=== PATIENT | male | born 1970 | race Caucasian/White ===

== ENCOUNTER 2017-03-25 11:31 | Emergency (ER) | payer OTHER ==
[~2017-03-25] VITALS: Ht 182.9 cm; Wt 90.9 kg
[2017-03-25 11:31] VITALS: BP 137/82; PULSE 103; RESP 16; O2SAT 96
--- NOTE | 2017-03-25 11:32 | ED.REPORT ---
HPI-Seizure Date of Service March 25, 2017 ED Provider: Dr. 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 He would have fallen to the ground if his coworkers had not caught him. Pt bit his tongue but did not hit his head. The seizure lasted approximately 5 minutes. By the time medics arrived, the pt was no longer seizing and was sitting on the ground and answering questions normally. The pt is unable to recall the incident at the ED but is awake, fully coherent, and all symptoms have resolved. Medics relay that coworkers reports he was intermittently taking his seizure medicine. Pt denies fever, cough, and vomiting. He lives at home alone. Nursing Notes Stated Complaint: SEIZURE Nursing Notes Reviewed: Yes Allergies: Coded Allergies: No Known Allergies (Unverified , 03/25/17) General Time Seen by Provider: 11:32 Chief Complaint Chief Complaint: Seizure, generalized Seizure Anatomic Location: Generalized Hx Obtained From: Patient, EMS Arrived By: Ambulance Onset Occurred: Just prior to arrival Symptom Duration: Since onset Severity: Current: No pain currently Recent Healthcare: No recent doctor visit, No recent hospitalization Similar Sx Previous: No Past Medical History Past Medical History high blood pressure Smoking History Unknown if Ever Smoker Social History chew tobacco Alcohol Use: 1-3 per day Drug Use: Denies drug use Other Social History: Local resident Ambulatory Status Independent Review of Systems Constitutional: Denies: Fever Respiratory: Denies: Non-productive cough Cardiovascular: Denies: Chest pain Musculoskeletal: Denies: Extremity pain, Joint pain, Neck pain Neurologic: Reports: Change LOC, Lightheaded, Seizure, Denies: Headache Complete sys rev & neg: except as marked. GI: Denies: Abdominal pain, Diarrhea, Nausea, Vomiting Physical Exam Initial Vital Signs Vital Signs (First) Date Time Temp Pulse Resp B/P Pulse Ox O2 Delivery O2 Flow Rate FiO2 03/25/17 11:31 36.9 103 16 137/82 96 Room Air reviewed Initial VS: Reviewed General/Constitutional: Awake, Cooperative Neck: Atraumatic, Supple Respiratory / Chest: Atraumatic, No respiratory distress, No wheezing Cardiovascular: Heart rate NL, Regular rhythm Neurologic: Speech NL, No motor deficits Head / Eyes: Atraumatic, Normocephalic ENT: Atraumatic, Airway patent bite rissa on right lateral aspect of tongue Abdomen: Atraumatic, Soft Upper Extremity / MS: Atraumatic, Inspection NL, Full range of motion Lower Extremity / Pelvis / MS: Atraumatic, Inspection NL, Full range of motion Skin: No rash, Warm, Dry Interpretation & Diagnostics Lab Results Interpretation Result Diagram: 03/25/17 1203 03/25/17 1203 Test 03/25/17 12:03 White Blood Count 10.1th/mm3 (3.8-10.1) Red Blood Count 4.32mil/mm3 (4.40-5.80) Hemoglobin 14.3g/dL (13.8-17.2) Hematocrit 42.7% (41.0-50.0) Mean Corpuscular Volume 98.8fL (81-100) Mean Corpuscular Hemoglobin 33.1pg (27.0-35.0) Mean Corpuscular Hemoglobin Concent 33.5% (32.0-37.0) Red Cell Distribution Width 12.6% (12.3-15.4) Platelet Count 241bil/L (150-400) Neutrophils (%) (Auto) 57.5% (40-74) Lymphocytes (%) (Auto) 30.9% (14-46) Monocytes (%) (Auto) 10.4% (4-12) Eosinophils (%) (Auto) 0.3% (0-5) Basophils (%) (Auto) 0.5% (0-3) Sodium Level 138mEq/L (134-144) Potassium Level 3.4mEq/L (3.5-5.2) Chloride Level 94mEq/L (97-108) Carbon Dioxide Level 12mmol/L (18-29) Blood Urea Nitrogen 13mg/dL (6-24) Creatinine 1.49mg/dL (0.76-1.27) Estimat Glomerular Filtration Rate 54mL/min (>59) Glucose Level 151mg/dL (60-99) Calcium Level 10.4mg/dL (8.5-10.1) Total Bilirubin 1.6mg/dL (0.0-1.2) Aspartate Amino Transf (AST/SGOT) 121U/L (0-50) Alanine Aminotransferase (ALT/SGPT) 53U/L (0-44) Alkaline Phosphatase 109U/L (25-150) Total Protein 8.9g/dL (6.4-8.4) Albumin 4.8g/dL (3.4-5.0) Re-Eval/Medical Decision Med Decision/Clinical Course Laboratory abnormalities are commensurate I believe with chronic alcohol use and the acute experience of seizure explaining his relative metabolic acidosis at this time. I do not believe any significant interventions required for the medical ABNORMALITY at this time. Re-Evaluation/Progress : Time of Eval: 12:47 Re-Evaluation/Progress Note: Pt rechecked. Consultation : Call Returned at: 12:01 Note: Case discussed with Radiologist at [facility]. A previous head CT was negative with a similar presentation. Counseled Regarding: Diagnosis, Lab results, Need for follow-up, When/why to return to ED Discharge & Departure Impression: Primary Impression: Seizure Additional Impressions: Alcohol abuse Alcoholic hepatitis Ascites presence: without ascites Qualified Code: K70.10 - Alcoholic hepatitis without ascites Disposition: Home Discharge Condition All VS Reviewed: Yes Condition: Stable Patient Instructions: Abuse of Alcohol (ED), Generalized Tonic Clonic Seizures (ED) Additional Instructions: You suffered what is termed a "generalized tonic-clonic seizure" today, bystanders reported that this lasted for approximately 5 minutes. The events surrounding today's incident are very similar to those reported on an ER note from [facility] in November of this year. CT scan of the brain on that day was normal. The fall that occurred today in association with your seizure was witnessed by number of people and they were able to lower you to the ground without evidence of further head injury, therefore no further head imaging was obtained. Given your alcohol use pattern as I understand it, I believe that the seizures you are experiencing are almost certainly related to your alcohol use. I recommend that you discontinue drinking alcohol. If you discontinue alcohol suddenly or abruptly, I expect you to have very significant withdrawal symptoms including seizure. Prior to discontinuance I recommend that you follow-up with a primary care provider or return to the emergency department for assistance. Referrals: [facility] Scribe Attestation Portion of this note were transcribed by Kalani Godfrey. I, , personally performed the history, physical exam, and medical decision-making: I reviewed and confirmed the accuracy for the information in the transcribed note. Signed by: pepe Taylor, 03/25/17 1300 copies to: [facility] Leonard Foster MD March 25, 2017 11:31 Kalani Godfrey March 25, 2017 11:37
[2017-03-25 12:08] LABS: BASOPHILS % (AUTO) 0.5 % (0-3); EOSINOPHILS % (AUTO) 0.3 % (0-5); MONOCYTES % (AUTO) 10.4 % (4-12); Mean Corpuscular Hemoglobin 33.1 pg (27.0-35.0); Mean Corpuscular Volume 98.8 fL (81-100); NEUTROPHILS % (AUTO) 57.5 % (40-74); Platelet Count 241 bil/L (150-400)
[2017-03-25 12:35] VITALS: BP 114/65; PULSE 88; RESP 20; O2SAT 94
[2017-03-25 13:08] VITALS: BP 125/61; PULSE 86
== END 2017-03-25 13:09 | disposition home or self-care (01) ==
LOC: SED 11:31
DX: R56.9 Unspecified convulsions (principal); K70.10 Alcoholic hepatitis without ascites; F10.10 Alcohol abuse, uncomplicated; I10 Essential (primary) hypertension; F17.220 Nicotine dependence, chewing tobacco, uncomplicated